=== PATIENT | male | born 1965 | race Caucasian/White ===

== ENCOUNTER 2020-09-21 22:07 | Emergency (ER) | payer MEDICAID ==
[~2020-09-21] VITALS: Ht 182.9 cm; Wt 91.9 kg
[2020-09-21 22:11] VITALS: BP 164/104
--- NOTE | 2020-09-21 22:31 | NUR ---
pt ambulated to room. sitting on stretcher, no immediate complaints of pain. has discomfort to lower back. at bedside, and placed on o2 sat monitor.
[2020-09-21] MEDS ORDERED: DIAZEPAM 5 MG TABLET ONE (22:46)
[2020-09-21] MEDS ORDERED: HYDROcodone/APAP 5/325 TABLET ONE (22:46)
--- NOTE | 2020-09-21 22:47 | NUR ---
pt wheeled to xray for lower back xray series, in [facility]
[2020-09-21] MEDS ORDERED: HYDROcodone/APAP 5/325 TABLET PO ONE (23:00)
[2020-09-21] MEDS ORDERED: DIAZEPAM 5 MG TABLET PO ONE (23:00)
--- NOTE | 2020-09-21 23:12 | NUR ---
pt provided urine sample, and it was sent to lab. Pt able to ambulate, with mild discomfort. Pain meds given PO and lab intern to bedside to draw.
[2020-09-21 23:21] LABS: BASOPHILS % (AUTO) 1 % (0-1); EOSINOPHILS % (AUTO) 2 % (1-7); LYMPHOCYTES % (AUTO) 38 % (22-44); MEAN CORPUSCULAR HEMOGLOBIN 31.7 pg (27.5-34.5); MEAN CORPUSCULAR HGB CONC 35.1 g/dL (33.2-36.2); MICROSCOPIC NOT IND; MONOCYTES % (AUTO) 9 % (2-9); NEUTROPHILS % (AUTO) 50 % (42-75); PLATELET COUNT 205 x10^3/uL (130-400); RED BLOOD COUNT 4.47 x10^6/uL (4.38-5.82); RED CELL DISTRIBUTION WIDTH 12.3 % (9.4-14.8)
[2020-09-21 23:22] LABS: MD NO
[2020-09-21 23:32] LABS: ALBUMIN 3.9 g/dL (3.4-5.0); ANION GAP 7 mmol/L (5-15); CALCIUM 8.9 mg/dL (8.5-10.1); CHLORIDE 109 mmol/L (98-107); CREATININE 1.35 mg/dL (0.7-1.3)
== END 2020-09-22 00:08 | disposition home or self-care (01) ==
LOC: ED 23:30
DX: S39.012A Strain of muscle, fascia and tendon of lower back, initial encounter (principal); R10.9 Unspecified abdominal pain; I10 Essential (primary) hypertension; X58.XXXA Exposure to other specified factors, initial encounter; Y93.89 Activity, other specified; Y92.89 Other specified places as the place of occurrence of the external cause; Y99.8 Other external cause status
CPT/HCPCS: 36415; 72110; 80048; 81003; 82040; 85025; 99284